=== PATIENT | female | born 1955 | race Caucasian/White ===

== ENCOUNTER 2025-05-28 05:30 | Emergency (ER) | payer MEDICARE ==
[~2025-05-28] VITALS: Ht 160 cm; Wt 36.6 kg
[~2025-05-28 05:30] MED LIST: DICL100G15 TOP; HYDR-4383 PO
--- NOTE | 2025-05-28 05:56 | Physician Documentation ---
History of Present Illness General Chief Complaint: Leg Pain Stated Complaint: LOWER LEG PAIN Time Seen by MD: 05:56 Primary Medical Doctor: None History of Present Illness Initial Comments Patient is a 69-year-old female who states she has had left lower leg pain and cramping pain for the last three days. Patient states she is taking ibuprofen 800 mg with some improvement she states it lasts maybe 2 hours. Patient denies any trauma. She denies any swelling she denies any warmth. Patient denies any fevers chills nausea or vomiting. The patient denies any back pain or history of back problems. Patient denies any bowel or bladder issues. Patient's symptoms are mild to moderate and persistent. Medication Reconciliation Allergies: Uncoded Allergies: BEE VENOM (Allergy, Unknown, SWELLING, 05/28/25) Scheduled Diclofenac Sodium (Voltaren), 1 GM TOP Q6H Scheduled PRN Hydrocodone/Acetaminophen ([place] 5-325 Tablet), 1 TAB PO TID PRN PRN for pain Tramadol HCl (Tramadol HCl), 1 TAB PO Q6H PRN PRN for pain Past Medical History Past Medical History: No Pertinent History Past Surgical History: appendectomy Alcohol Use: None Drug Use: none Review of Systems All Other Systems at this time: Reviewed and Negative Physical Exam Physical Exam Vital Signs: Temperature: 98.0, Heart Rate: 74, Respiratory Rate: 22, BP: 138/59, Pulse Oximetry: 0, Weight: 36.600 Physical Exam VITALS: Reviewed and as above. GENERAL: Alert, no apparent distress. HEENT: Normocephalic, atraumatic, PERRL, EOMI, dry mucosa, no erythema RESPIRATORY: Lungs clear, normal breath sounds, no respiratory distress. CHEST: No accessory muscle use, no retractions CV: Regular rate, rhythm, no edema, no murmur, No: JVD GI: Soft, non-tender, bowels sounds present, no rebound, guarding, or rigidity BACK: No CVA tenderness, or swelling MUSCULOSKELETAL: No deformities, no edema SKIN: Warm and dry, no rash NEURO: Oriented x4, No motor or sensory deficit PSYCH: Normal mood and affect, no agitation Progress Results/Orders Results/Orders Vital Signs 05/28/25 05/28/25 05/28/25 05/28/25 05:32 06:00 06:02 06:26 Temp 98.0 98.0 Pulse 74 73 Resp 22 18 B/P (MAP) 138/59 128/51 (76) Pulse Ox 0 100 05/28/25 06:38 Resp 16 B/P (MAP) Medical Decision Making Findings Patient complains of the about two days of left leg pain she actually states the pain is near the anterior portion of her leg over her fisher, she has no risk factors for DVT she is not tender over the calf there was no swelling warmth or lesions appreciated on her leg there was no edema. And she is nontender. Given these findings the patient has a normal dorsalis pedis pulses skin is warm and her foot is sensate I do not have any obvious pathology on exam the patient will be given a prescription for some tramadol for her comfort she will be advised to follow up as an outpatient return if any worse symptoms occur. The patient's pulse oximetry was interpreted as normal and adequate. Considerations for her pain considered ideations include possible possible fisher splints as well as potentially DVT although there is no consistent findings on exam patient has been advised that if he she does develop findings that she should return infectious etiologies were also considered. Departure Disposition: HOME / SELF CARE / HOMELESS Impression: Primary Impression: Leg pain, left Discharge Instructions: Leg Cramps Additional Instructions: Use ibuprofen for mild pain at the tramadol for more severe pain. Follow up with your healthcare providers soon as possible. Return for worsening of your symptoms. Referrals: NO PRIMARY CARE PROVIDER (PCP) Prescriptions Tramadol HCl (Tramadol HCl) 50 Mg Tablet 1 TAB PO Q6H PRN PRN for pain, #16 TAB Prov: SUZANNE ALCAZAR MD 05/28/25 Signature Scribe Signature: no scribe Attestation: The note accurately reflects work and decisions made by me.Suzanne Alcazar MD 05/28/25 10:18 SUZANNE ALCAZAR MD May 28, 2025 05:56
[2025-05-28 06:00] VITALS: BP 128/51; PULSE 73; TEMP 98; O2SAT 100
[2025-05-28] MEDS ORDERED: TRAM50TA2 PO (06:27)
[2025-05-28 06:38] VITALS: RESP 16
[2025-05-28] MEDS ORDERED: ACYC-129 PO (22:08)
[2025-05-28] MEDS ORDERED: HYDR-3965 PO (22:08)
== END 2025-05-28 06:40 | disposition home or self-care (01) ==
LOC: ER 05:30
DX: M79.662 Pain in left lower leg (principal); Z90.49 Acquired absence of other specified parts of digestive tract
CPT/HCPCS: 99283

== ENCOUNTER 2025-05-28 18:54 | Emergency (ER) | payer MEDICARE ==
[~2025-05-28] VITALS: Ht 160 cm; Wt 63.6 kg
[~2025-05-28 18:54] MED LIST changes: +TRAM50TA2 PO
[2025-05-28 19:05] VITALS: BP 135/60; PULSE 77; O2SAT 96
[2025-05-28] MEDS ORDERED: HYDR-3965 PO (22:08)
[2025-05-28] MEDS ORDERED: ACYC-129 PO (22:08)
--- NOTE | 2025-05-28 22:10 | Physician Documentation ---
History of Present Illness ~ Chief Complaint: Leg Pain Stated Complaint: LEFT LEG PAIN Time Seen by MD: 21:42 Primary Medical Doctor: None HPI Patient presents to the emergency room as a bounce back from earlier today with a continued leg pain. She was seen here earlier today and given a prescription for tramadol. Pain is worsened he had now she has developed a rash on her back. Tetanus witin 5 years: No Medication Reconciliation Allergies: Uncoded Allergies: BEE VENOM (Allergy, Unknown, SWELLING, 05/28/25) Scheduled Diclofenac Sodium (Voltaren), 1 GM TOP Q6H Scheduled PRN Hydrocodone/Acetaminophen ([place] 5-325 Tablet), 1 TAB PO TID PRN PRN for pain Tramadol HCl (Tramadol HCl), 1 TAB PO Q6H PRN PRN for pain Past Medical History Past Medical History: No Pertinent History Past Surgical History: appendectomy Alcohol Use: None Drug Use: none Review of Systems ROS All review of systems negative except as per HPI Physical Exam Vital Signs: Temperature: 98.0, Heart Rate: 77, Respiratory Rate: 20, BP: 135/60, Pulse Oximetry: 96, Weight: 63.600 Oxygen Flow Rate: 0 Physical Exam General: Patient is awake, alert, oriented x4 in no acute distress and well appearing.~ Head: Normocephalic and atraumatic. Eyes: Conjunctival normal. EOMI. PERRL. ENT: Mucous membranes moist. Neck: Supple, trachea is midline. Chest: Clear to auscultation bilaterally without rales, rhonchi, or wheezes. There is no accessory muscle use or retractions. Cardiac: RRR without murmurs, gallops, or rubs. Abd: Soft, nondistended, nontender, with normoactive bowel sounds. No guarding, rebound, or rigidity. Extremities: Normal strength. Normal range of motion. No appreciable abnormality Back: Papular rash painful to touch just left of patient's superior gluteal cleft Progress Results/Orders Results/Orders Orders - EFRA ESTEVEZ MD Vl Venous (05/28/25 21:42) Vital Signs 05/28/25 19:05 Temp 98.0 Pulse 77 Resp 20 B/P (MAP) 135/60 Pulse Ox 96 O2 Flow Rate 0 Medical Decision Making Findings Patient presents to the emergency room with pain to her lower extremity as per HPI. Differentials include but are not limited to DVT, musculoskeletal pain, radiculopathy therefore emergent ultrasound ordered which was reassuring. Patient has a painful rash just to the midline of her gluteal cleft. I suspect shingles. We will start treatment. Departure Disposition: HOME / SELF CARE / HOMELESS Impression: Primary Impression: Suspected shingles Condition: Stable Discharge Instructions: Shingles, [id number] Referrals: NO PRIMARY CARE PROVIDER (PCP) Prescriptions Hydrocodone Bit/Acetaminophen 5/325 MG ([place] 5/325 MG) 5 Mg/325 Mg Tablet 1-2 TAB PO Q4-6 hours PRN for pain, #20 TAB Prov: EFRA ESTEVEZ MD 05/28/25 Acyclovir* (Zovirax*) 800 Mg Tablet 1 TAB PO 5XD for 7 Days, #35 TAB Prov: EFRA ESTEVEZ MD 05/28/25 Education Educated: Patient Educated regarding: diagnosis, treatment, need for follow up Signature Scribe Signature: No scribe Attestation: The note accurately reflects work and decisions made by me.Efra Estevez MD 05/28/25 22:10 EFRA ESTEVEZ MD May 28, 2025 22:10
[2025-05-28 22:22] VITALS: TEMP 98
[2025-05-28 22:27] VITALS: RESP 18
[2025-05-28] MEDS: HYDROcodone/acetaminophen 5mg/325mg tablet PO ONE (22:27)
--- NOTE | 2025-05-28 22:27 | VASCULAR REPORT ---
Left lower extremity venous duplex Clinical History: Left leg pain Comparison: None Technique: Duplex Doppler evaluation of the deep venous system of the left lower extremity from the common femoral vein to the popliteal vein including color Doppler and spectral/pulsed waveform analysis was performed. Findings: The common femoral vein demonstrates appropriate compressibility and waveform variability. There is compressibility/patency of the great saphenous vein at the proximal thigh. The femoral vein demonstrates appropriate compressibility and waveform variability. The deep femoral vein demonstrates appropriate compressibility and waveform variability. The popliteal vein demonstrates appropriate compressibility and waveform variability. There is normal compressibility at the tibioperoneal trunk. Impression: 1. No left femoropopliteal venous thrombosis.
== END 2025-05-28 22:30 | disposition home or self-care (01) ==
LOC: ER 18:56
DX: R21 Rash and other nonspecific skin eruption (principal); M79.605 Pain in left leg; Z90.49 Acquired absence of other specified parts of digestive tract
CPT/HCPCS: 93971; 99284